=== PATIENT | female | born 1955 | race Caucasian/White ===

== ENCOUNTER 2021-09-23 11:10 | Emergency (ER) | payer OTHER, SELFPAY ==
[2021-09-23 11:20] VITALS: BP 109/53; PULSE 110; RESP 26; TEMP 37; O2SAT 98
[2021-09-23] MEDS: methylPREDNISolone SOD SUCC 125 MG VIAL IM (11:20)
[2021-09-23] MEDS: diphenhydrAMINE HCl CAP 25 MG CAPSULE 50 MG PO (11:20)
--- NOTE | 2021-09-23 11:28 | ED.ALLEREA ---
HPI - Allergic Reaction General Chief complaint: Allergic Reaction Stated complaint: allergic reaction Time Seen by Provider: 09/23/21 11:28 Source: patient and family Limitations: no limitations History of Present Illness HPI narrative: PATIENT TOOK HER FIRST DOSE OF CIPRO THIS AM AND PRESENTS TO URGENT CARE WITH INTENSE ITCHING AL OVER HER BODY. PATIENT DENIES ANY SHORTNESS OF BREATH AND NO CHEST PAIN. PATEINT HAS NOT TAKEN ANYTHING OVER THE COUNTER FOR HER SYMPTOMS. MD complaint: allergic reaction Symptoms: rash, itching, dizziness, nausea and vomiting Severity: moderate Treatment prior to arrival: none Related Data Home Medications Medication Instructions Recorded Confirmed hydrochlorothiazide 09/23/21 losartan 09/23/21 [id number] K tablet PO 09/23/21 [Adults Multivitamin] simvastatin mg 09/23/21 Allergies Allergy/AdvReac Type Severity Reaction Status Date / Time ciprofloxacin [From Cipro] Allergy Hives Verified 09/23/21 11:42 Review of Systems Review of Systems: CONSTITUTIONAL: Denies fever, chills, or sweats. EYES: Denies visual changes, redness, or discharge. ENT: Denies rhinorrhea, congestion, sore throat, or otalgia. CARDIOVASCULAR: Denies chest pain, palpitations, or edema. RESPIRATORY: Denies cough or dyspnea. GASTROINTESTINAL: Denies abdominal pain, nausea, vomiting, or diarrhea. GENITOURINARY: Denies dysuria or hematuria. SKIN: Denies rash or itching. MUSCULOSKELETAL: Denies back pain, joint pain, or myalgia. NEUROLOGIC: Denies headache, numbness, or weakness. PSYCHIATRIC: Denies anxiety or depression. PMFSH Comments At time of signature, agree with nursing past medical, surgical, social and family history. There is no relevant family history pertinent to the presenting complaint Exam Narrative: GENERAL: Well-appearing, well-nourished, and in no acute distress. HEAD: Normocephalic, atraumatic. EYES: PERRLA and EOMI. ENT: Nares clear, no rhinorrhea or epistaxis. Mucous membranes moist. NECK: Supple. CHEST: Clear to auscultation. No respiratory distress. HEART: Regular rate and rhythm. No murmur heard. Normal peripheral pulses. ABDOMEN: Soft, nontender, nondistended, normal active bowel sounds. EXTREMITIES: Normal range of motion. No edema NEURO: No focal deficits. Alert and oriented x3. [place] Coma Scale Eye Opening: Spontaneous 4 [place] Coma Scale Motor: Obeys Commands 6 [place] Coma Scale Verbal: Oriented 5 [place] Coma Scale Total 15 Course Course Level of Care: Express Care Visit Vital Signs Vital signs: Vital Signs Temperature 37.0 C 09/23/21 11:30 Pulse Rate 110 H 09/23/21 11:30 Respiratory Rate 26 H 09/23/21 11:30 Blood Pressure 109/53 L 09/23/21 11:30 Pulse Oximetry 98 09/23/21 11:30 Temperature 37.0 C 09/23/21 11:30 Pulse Rate 110 H 09/23/21 11:30 Respiratory Rate 26 H 09/23/21 11:30 Blood Pressure 109/53 L 09/23/21 11:30 Pulse Oximetry 98 09/23/21 11:30 Patient had a change and felt weak dizzy nauseated and blood pressure recheck was 85/40. EMS notified [facility] called accepts patient for transfer to [facility] emergency room Dr. Castillo accepting physician. Transfer Transfered to: [facility] Transportation: [facility] Accepting physician: HARRY Transfer comments: REPORT GIVEN TO FR CASTILLO Discharge Plan Discharge Clinical Impression: Allergic reaction, Adverse reaction to drug Patient Disposition: Acute Care Hospital Condition: Stable Prescriptions: No Action losartan 50 mg tablet RF: 0 simvastatin 20 mg tablet RF: 0 hydrochlorothiazide 12.5 mg capsule RF: 0 Adults Multivitamin 18 mg iron-400 mcg-25 mcg Tablet PO RF: 0 Follow-up/Referrals: Rahul,MD Landon [Primary Care Provider] -
[2021-09-23 11:30] VITALS: PULSE 100; RESP 20; O2SAT 99
[2021-09-23 12:00] VITALS: BP 85/40; PULSE 100; RESP 20; O2SAT 99
[2021-09-23 12:05] VITALS: BP 100/50; PULSE 98; RESP 24
[2021-09-23 12:15] VITALS: BP 105/60
--- NOTE | 2021-09-23 17:50 | PC.NURSE ---
1130 PT STATES NO INCREASE SYMPTOMS.
--- NOTE | 2021-09-23 17:53 | PC.NURSE ---
Addendum entered by Arabella Montiel RN 09/23/21 17:54: AT SIDE Original Note: 1145 STATES 50% LESS ITCHING. REPORTS LESS SWELLING. NO APPARENT CHANGE IN RASH/HIVES.
--- NOTE | 2021-09-23 19:54 | PC.NURSE ---
1200 pt informed staff she was lightheaded, felt hands tingling, mild nausea. color pale. assisted to lie flat. provider aware.
--- NOTE | 2021-09-23 19:57 | PC.NURSE ---
1205 pt states less dizziness/lightheadedness - reports is anxious and shaky, trembling observed. provider aware and informed pt/ of necessity to transfer to er. agreeable at this time.
== END 2021-09-23 12:15 | disposition short-term general hospital (02) ==
PROVIDERS: Emergency Provider Nurse Practitioner Family; PCP Internal Medicine Infectious Disease
DX: L29.9 Pruritus, unspecified (principal); R42 Dizziness and giddiness; R21 Rash and other nonspecific skin eruption; R11.2 Nausea with vomiting, unspecified; T36.8X5A Adverse effect of other systemic antibiotics, initial encounter
CPT/HCPCS: 96372; 99215; A9270; G0463; J2930

== ENCOUNTER 2023-06-03 13:56 | Outpatient (CLI) | payer MEDICARE, SELFPAY ==
--- NOTE | 2023-06-03 14:11 | ECG_ITS ---
Measurements Intervals [place] Rate: 75 P: 43 DC: 155 QRS: 15 QRSD: 79 T: 24 QT: 371 QTc: 416 Interpretive Statements SINUS RHYTHM RSR' IN V1 OR V2, PROBABLY NORMAL VARIANT LOW QRS VOLTAGE IN PRECORDIAL LEADS BORDERLINE T WAVE ABNORMALITY- ANTERIOR LEADS BASELINE ARTIFACT- I, II, III, AVR, AVL, AVF BORDERLINE ECG NO PREVIOUS ECG AVAILABLE FOR COMPARISON Electronically Signed On 06-03-2023 14:40:04 CDT by Parvez Salas D.O.
[2023-06-03 14:50] LABS: Anion Gap 6 mmol/L (8-16); Blood Urea Nitrogen 12 mg/dL (7-17); Calcium 8.9 mg/dL (8.4-10.2); Carbon Dioxide 29 mmol/L (22-30); Chloride 100 mmol/L (98-107); Estimated Glomerular Filt Rate 56; Glucose 108 mg/dL (65-110); Potassium 3.3 mmol/L (3.4-5.0); Sodium 135 mmol/L (137-145)
== END 2023-06-03 13:57 | disposition home or self-care (01) ==
LOC: ANHSURGERY 14:00
PROVIDERS: Anesthesiology; PCP Internal Medicine Infectious Disease; Visit Provider Plastic Surgery
DX: Z01.818 Encounter for other preprocedural examination (principal); Z79.899 Other long term (current) drug therapy; I10 Essential (primary) hypertension
CPT/HCPCS: 36415; 80048; 93005

== ENCOUNTER 2023-06-06 00:29 | Day surgery (SDC) | payer MEDICARE, SELFPAY ==
[2023-05-30 09:11] VITALS: BMI 27.8
--- NOTE | 2023-05-30 09:12 | PC.NURSE ---
Report to the Outpatient Waiting Room, entrance under the green pavilion located off [facility], at time _0600_ on date _[id number]_. Planned Procedure Time: _0730_. Time changes happen often and if your time is changed the preop area will call you the afternoon before. - You and your visitor will be asked to self-screen and do not enter if you have any COVID symptoms. - A mask is optional within the hospital at this time. Patients may have clear liquids (water, carbonated beverages, clear teas, apple juice) until 3 hours prior to surgery with a maximum of 20 ounces. - No food from midnight until time of surgery Take the following medications with a SIP of water the morning of surgery: ___Sertraline DO NOT STOP ANY OF YOUR OTHER PRESCRIPTION MEDICATIONS PRIOR TO SURGERY ?EXCEPT THE FOLLOWING Medications to discontinue per physician Multivitamin and Calcium Date to take last fxrp__[id number] Please no make-up, nail iranian, hairspray, perfume, deodorant, or body powder the day of surgery. No jewelry (including any body piercings) or valuables the day of surgery, leave them at home. Please take a shower or bath the night before, or the morning of, surgery with an antibacterial soap. Wear comfortable, loose fitting clothing. - Jewelry must be removed prior to entering the operating room. Rings and piercings that are not removed may be cut off. - The hospital will not accept responsibility for valuables. - Please leave all valuables, including medications, at home the day of surgery. If you are going home after surgery, a licensed dump truck driver must drive you home. - NO public transportation without another adult if you receive anesthesia. - We recommend that an adult stay with you for 24 hours following discharge. - We also recommend that you do not drive, make important decision, drink alcoholic beverages, or take any drugs that were not prescribed by your health care provider for at least 24 hours after your discharge time. Follow any additional instructions given to you from your surgeon. If you or anyone in your household have experienced Covid symptoms in the past week, please notify your surgeon or the nurse liaison at the phone number below for possible testing. Telephone instructions given to _Patient___and asked if any additional questions and then verbalized understanding. Patient advised to call surgeon office or pre surgery nurse liaison [phone] if any additional questions.
[2023-06-06 06:13] VITALS: BP 139/82; PULSE 76; RESP 18; TEMP 36.4; O2SAT 98
[2023-06-06] MEDS: LACTATED RINGERS 1,000 ML 30 ML IV CONT ×2 (06:27→09:06)
--- NOTE | 2023-06-06 06:47 | WPDANESEPPF ---
Anes - Initial Pre Proc Eval Procedure: Operation Date: 06/06/23 07:30 Proposed Procedures p Complete Ungiectomy for Subungual Melanoma In Situ, Application of Integra Right Ring Finger - Akbar Laura MD Date/Time: 06/06/23 06:47 Surgeon: Akbar Laura MD Pre Op Diagnosis: Melanoma In Situ Right Ring Finger Patient Data Age: 67 Gender: F Height: 1.63 m Weight: 73.6 kg Allergies Allergy/AdvReac Type Severity Reaction Status Date / Time ciprofloxacin [From Cipro] Allergy Severe Hives Verified 05/30/23 09:02 codeine AdvReac Mild Abdominal Verified 05/30/23 09:02 Pain Home Medications Medication Instructions Recorded Confirmed Type hydrochlorothiazide 12.5 mg capsule 12.5 mg PO BID 09/23/21 05/30/23 History multivit with minerals-iron 18 1 tablet PO DAILY 09/23/21 05/30/23 History mg-folic ac 400 mcg-vit K 25 mcg tablet (Adults Multivitamin) calcium 500 mg tablet 500 mg PO DAILY 05/30/23 05/30/23 History losartan 100 mg tablet 100 mg PO DAILY 05/30/23 05/30/23 History sertraline 25 mg tablet 25 mg PO DAILY 05/30/23 05/30/23 History Patient hx anesthesia problems: none Family hx anesthesia problems: none Results Review: All pre-operative results and documents have been reviewed as part of the pre-operative evaluation. COUNTS INCLUDE 234 BEDS AT THE [facility] Past Medical History Medical History (Updated 06/06/23 @ 06:48 by Jax De La Cruz MD) HTN (hypertension) Surgical History Surgical History (Updated 06/06/23 @ 06:48 by Jax De La Cruz MD) History of shoulder surgery Social History Social History Smoking status: Never smoker Alcohol intake: current Drinks per week: 2 Substance use type: marijuana Living arrangements: with family Spiritual care concerns: No Anes - Eval Final PreProcedure Day of Procedure 06/06/23 06:47 Patient weight: overweight Heart: regular rate and rhythm Lungs: clear to auscultation Airway: Mallampati scale class II Neurological: alert and oriented Last oral intake: >/= 8 hours ASA classification: III Emergent: no Anesthetic plan: proceed Anesthesia type and monitoring: general GIVS and standard monitoring Results Review: All pre-operative results and documents have been reviewed as part of the pre-operative evaluation. Informed Consent: The patient's anesthetic plan and its attendant risks and benefits were discussed with the patient/family/POA. Questions were solicited and answers provided to the satisfaction of the patient/family/POA.
--- NOTE | 2023-06-06 07:20 | WPDHPUPDATE1 ---
History and Physical Update Update Date/Time: 06/06/23 07:20 History and Physical has been reviewed, including an updated exam of the patient. There are NO changes in the patient's condition. Risks, benefits, and alternatives have been discussed and questions answered. Patient agrees to proceed with procedure.
--- NOTE | 2023-06-06 07:30 | WPDHPUPDATE1 ---
History and Physical Update Update Date/Time: 06/06/23 07:30 History and Physical has been reviewed, including an updated exam of the patient. There are NO changes in the patient's condition. Risks, benefits, and alternatives have been discussed and questions answered. Patient agrees to proceed with procedure. Addendum to H&P. The plan includes application of Integra synthetic dermal matrix to the denuded surgical site. Also spoke to patient today about possibly utilizing a dermal fat graft instead if product is not a viable choice.
[2023-06-06] MEDS: LIDO 1%/EPINEPHRINE 1:100,000 20 ML VIAL 30 ML INFILTRATE (08:04)
[2023-06-06 09:06] VITALS: BP 133/59; PULSE 74; RESP 16; O2SAT 100
--- NOTE | 2023-06-06 09:32 | P.OP_ITS ---
Procedure Note - Detailed Date of Procedure 06/06/23 Pre-op Diagnosis Melanoma In Situ Right Ring Finger Post-op Diagnosis Same Procedure Performed Complete ungiectomy of the right ring finger nail matrix for melanoma in Situ and application of Integra wound matrix, 4 sq cm Surgeon Akbar Laura MD Electrical Discharge Machine Operator Vonnie Anesthesia MAC Indications Biopsy-proven atypical pigmented intraepithelial proliferation, likely melanoma in Situ. Description of Procedure The right ring finger was marked with the patient's consent in the holding area. We also discussed possible site for graft harvest if needed on the right medial arm. She was taken to the operating room and placed supine on the operating table. She was given IV sedation. The right upper extremity was prepped and draped in usual fashion. The site was examined and the digit anesthetized with 1% lidocaine with epinephrine. The site was carefully marked for excision with approximately 5 mm of margin from the nail fold and hyponychium and germinal matrix. The location of the joint was carefully identified and estimation of the distal end of the terminal tendon was noted. A red tourniquet was rolled on to the finger. The incision was made as marked and dissected to periosteum in all areas. Care was taken to try to identify the insertion of the terminal tendon and preserve it. I believe the terminal tendon was not damaged. The entire nail bed was removed with the use of a 15 C blade. The specimen was sent to pathology for permanent section.. The Integra Meshed Bilayer Wound Matrix was cut and tailored to the site. It was sutured around the periphery with 4-0 Monocryl suture. The tournicot was released. Time was allowed for hemostasis. The dressing was a tailored piece of Mepilex Ag, A folded 4 x 4 and 1 in Coban. Implants Integra bilayer wound matrix. Estimated Blood Loss 5 Tourniquet Time 44 Drains No Packing No Pathology Yes Complications No immediate complications Condition Stable Disposition Same day
[2023-06-06 09:36] VITALS: BP 134/70; PULSE 58; RESP 16
[2023-06-06 10:06] VITALS: BP 125/60; PULSE 57
== END 2023-06-06 10:20 | disposition home or self-care (01) ==
PROVIDERS: PCP Internal Medicine Infectious Disease; Visit Provider Plastic Surgery
PROC: (CPT 11750; principal; 2023-06-06 07:30)
DX: D03.61 Melanoma in situ of right upper limb, including shoulder (principal); I10 Essential (primary) hypertension; F12.90 Cannabis use, unspecified, uncomplicated
CPT/HCPCS: 11750; 15275; 36415; 80048; 88305; 93005; A9270; C9363; J2250; J2405; J2704; J3010; J7120

== ENCOUNTER 2023-06-26 02:48 | Day surgery (SDC) | payer MEDICARE, SELFPAY ==
[2023-06-14 13:31] VITALS: BMI 28.0
--- NOTE | 2023-06-14 13:47 | PC.NURSE ---
Report to the Outpatient Waiting Room, entrance under the green pavilion located off [facility], at time __9:00AM on date __06/26/23 . Planned Procedure Time: ___10:00AM . LOCAL ANESTHESIA Time changes happen often and if your time is changed the preop area will call you the afternoon before. - You and your visitor will be asked to self-screen and do not enter if you have any COVID symptoms. - A mask is optional within the hospital at this time. Patients may have LIGHT BREAKFAST. Take the following medications with a SIP of water the morning of surgery: ____AM MEDS DO NOT STOP ANY OF YOUR OTHER PRESCRIPTION MEDICATIONS PRIOR TO SURGERY ?EXCEPT THE FOLLOWING Medications to discontinue per physician ____HOLD ASPIRIN PER DR GARZA Please no make-up, nail faroese, hairspray, perfume, deodorant, or body powder the day of surgery. No jewelry (including any body piercings) or valuables the day of surgery, leave them at home. Please take a shower or bath the night before, or the morning of, surgery with an antibacterial soap. Wear comfortable, loose fitting clothing. - Jewelry must be removed prior to entering the operating room. Rings and piercings that are not removed may be cut off. - The hospital will not accept responsibility for valuables. - Please leave all valuables, including medications, at home the day of surgery. If you are going home after surgery, MAY DRIVE SELF HOME. Follow any additional instructions given to you from your surgeon. If you or anyone in your household have experienced Covid symptoms in the past week, please notify your surgeon or the nurse liaison at the phone number below for possible testing. Telephone instructions given to __PATIENT and asked if any additional questions and then verbalized understanding. Patient advised to call surgeon office or pre surgery nurse liaison [phone] if any additional questions.
[2023-06-26] VITALS (13 sets, daily range): BP systolic 133–169; BP diastolic 68–85; PULSE 62–70; RESP 12–20; TEMP 36.6; O2SAT 94–100
--- NOTE | 2023-06-26 07:23 | WPDHPUPDATE1 ---
History and Physical Update Update Date/Time: 06/26/23 07:23 History and Physical has been reviewed, including an updated exam of the patient. There are NO changes in the patient's condition. Risks, benefits, and alternatives have been discussed and questions answered. Patient agrees to proceed with procedure.
[2023-06-26] MEDS: LIDO 1%/EPINEPHRINE 1:100,000 50 ML VIAL 10 ML INFILTRATE (07:41)
--- NOTE | 2023-06-26 09:35 | W.PM.PROC2 ---
Procedure Note - Detailed Date of Procedure 06/26/23 Pre-op Diagnosis melanoma insitu right ring finger nail bed Post-op Diagnosis Same Procedure Performed Wide reexcision of melanoma in situ right ring finger with application of Integra Meshed Bilayer Wound Matrix 3x4 cm Surgeon Akbar Laura MD Anesthesia Local Indications Positive or insufficient margins. Description of Procedure In the holding area the patient's right ring finger was marked with her consent. She was taken to the operating room where she was placed supine on the operating table. The hand was prepped and draped in usual fashion. A time-out was held and confirmed. The digit was anesthetized with 1% lidocaine with epinephrine. Markings were made to increase the margins generated at the prior excision. 5 mm were marked for a proximal skin margin, 3 mm were marked for the distal and lateral margins, the joint space was identified with 25 gauge needle to allow re-excision off the terminal tendon insertion for the positive deep margin in that region. A green tourniquet was rolled onto the finger. The incisions were made through the skin and the specimen carefully excised off the terminal tendon and slightly below the axis of the distal phalanx laterally and distally completely exposing the tuft. Digital nerve branches were identified on both sides these were preserved. The specimen was marked with a short suture at the proximal aspect and a long suture at the area of the hyponychium. The Integra bilayer xenograft was tailor and inset with 5 0 chromic. The dorsal proximal incision created to identify the terminal tendon was closed with the same suture. Additional dressings included Connors 1 directly over the xenograft, Mepilex Ag over enough Connors and gauze and Coban. The tourniquet was released. The patient is discharged from the operating room with instructions in wound care and follow-up. She has adequate pain medication at home. No antibiotics were utilized. Implants Integra meshed bilayer wound matrix Estimated Blood Loss 1 Drains No Packing No Pathology Yes Complications No immediate complications Condition Stable Disposition Same day
== END 2023-06-26 09:49 | disposition home or self-care (01) ==
PROVIDERS: PCP Internal Medicine Infectious Disease; Visit Provider Plastic Surgery
PROC: (CPT 11626; principal; 2023-06-26 07:30)
DX: C43.61 Malignant melanoma of right upper limb, including shoulder (principal); I10 Essential (primary) hypertension
CPT/HCPCS: 11626; 15275; 88305; A9270; C9363